=== PATIENT | female | born 1975 | race Two or more races ===

== ENCOUNTER 2018-05-01 15:19 | Emergency (ER) | payer OTHER ==
[~2018-05-01] VITALS: Ht 167.6 cm; Wt 79.8 kg
[2018-05-01 15:28] VITALS: Ht 167.6 cm; Wt 79.8 kg
[2018-05-01 17:42] LABS: CALCIUM 8.7 mg/dL (8.5-10.1); CARBON DIOXIDE 23.6 mmol/L (21-32); CHLORIDE SERUM 102 mmol/L (98-107); CREATININE SERUM 0.8 mg/dL (0.6-1.0); GFR1 > 60 mL/min; GLUCOSE SERUM 96 mg/dL (74-106); POTASSIUM SERUM 3.5 mmol/L (3.5-5.1); SODIUM SERUM 137 mmol/L (136-145)
[2018-05-01 17:47] LABS: BASOPHIL % 0.4 % (0-2); PLATELET COUNT 352 x10^3mcL (130-400)
[2018-05-01 17:49] LABS: ALBUMIN 3.8 g/dL (3.4-5.0); ALKALINE PHOSPHATASE 79 U/L (46-116); ALT/SGPT 14 U/L (14-59); AST/SGOT 23 U/L (15-37); BILIRUBIN TOTAL 0.46 mg/dL (0.20-1.00)
[2018-05-01 18:42] VITALS: BP 126/58
== END 2018-05-01 18:43 | disposition home or self-care (01) ==
LOC: ED 15:19
PROVIDERS: Emergency Medicine
DX: L03.012 Cellulitis of left finger (principal); J45.909 Unspecified asthma, uncomplicated; E03.9 Hypothyroidism, unspecified
CPT/HCPCS: 90715; J0690; J7030; Q0092